=== PATIENT | male | born 1945 | race Hispanic/Latino ===

== ENCOUNTER → 2018-11-30 | Outpatient (CLI) | payer MEDICARE ==
[~2018-11-30] MED LIST: IOPAMIDOL 370 MG/ML 200 ML INFUS..BTL INJ ONE; SODIUM CHLORIDE 0.9% 100 ML 100 ML ONE; SODIUM CHLORIDE 0.9% 500ML 500 ML ONE
[2018-11-30 13:35] LABS: CREATININE, SERUM 1.83 mg/dL (0.72-1.25)
--- NOTE | 2018-11-30 17:42 | Diagnostic Imaging Report ---
CT angiogram of the abdomen pelvis with bilateral lower extremity runoffs. Indication: Peripheral arterial disease TECHNIQUE: Abdomen, pelvis, and bilateral lower extremities were scanned utilizing a multidetector helical scanner from the inferior lungs to the level of bilateral feet after administration of IV contrast. Coronal and sagittal reformations were obtained. CT Angiogram protocol was performed. 3D reconstructions were also performed. IV CONTRAST: 100 mL of Isovue 370 RADIATION DOSE: Total DLP: 944.6 mGy*cm Dose modulation, iterative reconstruction, and/or weight based adjustment of the mA/kV was utilized to reduce the radiation dose to as low as reasonably achievable. COMPLICATIONS: None COMPARISON: None. FINDINGS: VESSELS Moderate to extensive calcified and non-calcified atherosclerotic plaque throughout the abdominal aorta and its major branches. 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 There is an infrarenal abdominal aortic aneurysm. The aneurysm neck measures approximately 0.6 cm. The aneurysm extends to the iliac bifurcation. The aneurysm is bilobed with the proximal lobe measuring up to 3.1 cm and the distal lobe measuring up to 4.6 cm. There is extensive mural thrombus. There is focal severe stenosis of the origin of the celiac artery with poststenotic dilatation. There are atherosclerotic changes with mild stenosis of the origin of the SMA. The JONY origin is occluded but the vessel reconstitutes beyond the origin. There is a right renal artery stent which appears patent. There is focal moderate to severe stenosis in the proximal left renal artery. There are two overlapping stents within the left common iliac artery extending into the left external iliac artery proximally. The stents appear patent. Atherosclerotic calcifications with multifocal mild to moderate stenoses of the left internal iliac artery. Mild multifocal stenoses within the left external iliac artery. Right common iliac artery origin is occluded. There is partial reconstitution of the distal right common iliac artery which gives rise to a diminutive and severely stenosed proximal right internal iliac artery. The distal right internal iliac artery is patent. The right external iliac artery is severely stenosed and likely occluded proximally. The vessel reconstitutes in the mid to distal portion, where it is diminutive. Right lower extremity: There is a robust right inferior epigastric collateral which supplies a normal caliber right common femoral artery. Atherosclerotic changes with multifocal mild to moderate stenoses within the right common femoral artery. Atherosclerotic changes results in mild multifocal stenoses within the right proximal and mid superficial femoral artery and mild to moderate stenosis within the distal superficial femoral artery. Patent right profunda femoral artery. Atherosclerotic changes with mild to moderate stenoses within the right popliteal artery. Mild atherosclerotic changes within the tibioperoneal trunk, anterior and posterior tibial arteries, and peroneal artery with scattered mild stenoses. Patent three-vessel runoff to the right foot. Left lower extremity: Atherosclerotic changes with multifocal mild to moderate stenoses within the left common femoral artery. Atherosclerotic changes results in mild multifocal stenoses within the left proximal superficial artery, and moderate stenoses within the mid and distal portions. Patent left profunda femoral artery with mild atherosclerotic changes. Atherosclerotic changes with mild to moderate stenoses within the left popliteal artery. Mild atherosclerotic changes within the tibioperoneal trunk, anterior and posterior tibial arteries, and peroneal artery with scattered mild stenoses. Patent three-vessel runoff to the left foot. Abdomen and Pelvis: LOWER THORAX: Partially seen pacemaker leads. Extensive coronary atherosclerotic calcifications. There is patchy dependent atelectasis. HEPATOBILIARY: No evidence of focal lesion. No biliary ductal dilation. GALLBLADDER: No radio-opaque stones or sludge. No wall thickening. SPLEEN: No splenomegaly. Calcified splenic granulomas. PANCREAS: No focal masses or ductal dilatation. ADRENALS: No adrenal nodules KIDNEYS/URETERS: Kidneys enhance symmetrically. No evidence of hydronephrosis, solid mass, or stone. GI TRACT: No evidence of wall thickening or distension. Appendix is normal. PELVIC ORGANS/BLADDER: The bladder is partially decompressed and mildly thick-walled. LYMPH NODES: No lymphadenopathy. PERITONEUM / RETROPERITONEUM: No free air or fluid. BONES AND SOFT TISSUES: No acute osseous abnormality. No suspicious lytic or blastic lesions. IMPRESSION Infrarenal bilobed abdominal aortic aneurysm measuring up to 4.6 cm. No evidence of aortic dissection. Patent right renal artery and left common/external iliac artery stents. Focal moderate to severe stenosis in the proximal left renal artery. Severe stenosis at the origin of the celiac artery. Patent SMA. Occluded proximal JONY which reconstitutes. Occluded right common and proximal external iliac artery with reconstitution of the distal external iliac artery and arterial supply to the right lower extremity predominantly via robust right inferior epigastric artery collaterals. Atherosclerotic changes with multifocal mild to moderate stenoses within the bilateral femoral and popliteal arteries. Patent three-vessel runoff to bilateral lower extremities. Signed by: Dr. John Dykes MD on 11/30/2018 5:39 PM
== END ==
LOC: CT 12:16
PROVIDERS: ATTEND Internal Medicine Interventional Cardiology
DX: I73.9 Peripheral vascular disease, unspecified (principal)
CPT/HCPCS: 36415; 75635; 82565; 84520; J7040; Q9967

== ENCOUNTER 2019-06-04 09:15 | Observation (INO) | payer MEDICARE ==
[~2019-06-04] VITALS: Ht 180.3 cm; Wt 90.7 kg
--- OUTSIDE RECORDS SUMMARY | 2019-06-04 09:19 | XMS REPORT | Summary of Care ---
Author Author [facility] Organization [facility] Address Unknown Phone Unavailable Care Team Providers Care Facilities Engineering Manager Name Role Phone Pcp, Patient Does Not Have A PCP Reason for Referral * (Routine) Referred By Contact Referred To Contact Status Reason Specialty Diagnoses / Procedures Zachariah Pichardo MD [address] [place] [address] New Request Diagnoses Carotid stenosis, asymptomatic, left P rocedures CAROTID DUPLEX BILATERAL BY VASCULAR LAB Reason for Visit * Reason Comments Follow-up after lab study * (Routine) Referred By Contact Referred To Contact Status Reason Specialty Diagnoses / Procedures Zachariah Pichardo MD [address] [place] [address] Closed [facility] Diagnoses SURGERY / Stenosis of left Vascular Surgery carotid artery without cerebral infarction P rocedures Discharge Follow-Up: Specialty Service [facility]GERY; 2 Weeks Encounter Details Care Team Description Date Type Department Zachariah Pichardo MD [address] [place] [address] Carotid stenosis, asymptomatic, left (Primary Dx) 05/06/2019 Office Visit [facility] Vascular Surgery- [facility] [address] [phone] Allergies Comments Active Allergy Reactions Severity Noted Date Only intravenous he takes it by mouth and has no reaction. Ondansetron Hcl (Pf) Hives Medium 03/18/2019 documented as of this encounter (statuses as of 05/06/2019) Medications End Date Status Medication Sig Dispensed Refills Start Date Active clopidogrel (PLAVIX) 75 Take 75 mg by 0 mg tablet mouth daily. Active metoprolol succinate 50 Take 50 mg by 0 mg CSpX mouth. Active atorvastatin 40 mg tablet Take 40 mg by 0 mouth at bedtime. Active aspirin 81 mg chewable Take 81 mg by 0 tablet mouth daily. Active escitalopram oxalate 20 Take 20 mg by 0 mg tablet mouth daily. Active pantoprazole (PROTONIX) Take 40 mg by 0 40 mg EC tablet mouth daily. Active ferrous sulfate 325 mg Take 325 mg 0 (65 mg iron) tablet by mouth 3 (three) times daily with meals. Active furosemide (LASIX) 40 mg Take 40 mg by 0 tablet mouth daily. Active RANOLAZINE ORAL Take 500 mg 0 by mouth 2 (two) times daily. Active ondansetron 4 mg Take 4 mg by 0 disintegrating tablet mouth every 8 (eight) hours as needed. Active hydrOXYzine 25 mg tablet Take 25 mg by 0 mouth at bedtime. Active HYDROcodone-acetaminophen Take 1 tablet 28 tablet 0 (NORCO) 5-325 mg by mouth 9 tabletIndications: every 6 (six) Carotid stenosis, hours as asymptomatic, bilateral needed for Pain (scale 4-6). documented as of this encounter (statuses as of 05/06/2019) Active Problems Problem Noted Date At risk for hemodynamic instability 03/25/2019 documented as of this encounter (statuses as of 05/06/2019) Social History Date Tobacco Use Types Packs/Day Years Used Former Smoker Smokeless Tobacco: Never Used Comments: quit 20 years ago Drinks/Week oz/Week Comments Alcohol Use Yes Sex Assigned at Date Recorded Not on file Industry Job Start Date Occupation Not on file Not on file Not on file Travel End Travel History Travel Start No recent travel history available. documented as of this encounter Last Filed Vital Signs Reading Time Taken Comments Vital Sign 150/87 05/06/2019 1:05 PM CDT Blood Pressure 60 05/06/2019 1:02 PM CDT Pulse 35.8 C (96.4 F) 05/06/2019 1:02 PM CDT Temperature - - Respiratory Rate 99% 05/06/2019 1:02 PM CDT Oxygen Saturation - - Inhaled Oxygen Concentration 94.8 kg (209 lb) 05/06/2019 1:02 PM CDT Weight 180.3 cm (5' 11") 05/06/2019 1:02 PM CDT Height 29.15 05/06/2019 1:02 PM CDT Body Mass Index documented in this encounter Progress Notes * Zachariah Pichardo MD - 05/06/2019 1:30 PM CDT Vascular Surgery Faculty Note (Dr. Pichardo) Date of service: 05/06/2019 The patient presents after carotid duplex. Left side endarterectomy site shows no significant stenosis. There is moderate stenosis on the right 155/17. No pro blems since I saw him last time Exam: AOx3, vitals stable, left neck incision well-healing, corner of the left m outh is recovering A/P: Carotid endarterectomy for severe asymptomatic stenosis -Healing well. 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 Zachariah Pichardo MD, VERN, MHA, RPVI, FACS screen machine operator Division of Vascular Surgery and Endovascular Therapy 05/06/2019 1:20 PM | Office: [phone] | | Pager: [phone] documented in this encounter Plan of Treatment Health Maintenance Due Date Last Done Comments HEPATITIS C (HCV) SCREEN 1945 DTaP,Tdap,and Td Vaccines 1964 (1 - Tdap) COLONOSCOPY 1995 Zoster Recombinant 1995 Vaccine (SHINGRIX) (1 of 2) LUNG CANCER SCREEN: 2000 Recommended for age 55-80 with 30 + pack year history Medicare Wellness Visit 2010 PNEUMOCOCCAL VACCINES 65+ 2010 (1 of 2 - PCV13) INFLUENZA VACCINE 05/26/2019 documented as of this encounter Implants Device Identifier Shelf Expiration Date Model / Serial / Lot Implanted Type Area Manufactur er 11/01/2023 [id number] / NA / [id number] Vascu-Guard Bovine Pericardium Left: Neck Synovis Patch 0.8x8cm Sethi Ref#[id number] Implanted: Qty: 1 on 03/25/2019 by Zachariah Pichardo MD at [facility] ([facility]) documented as of this encounter Results Not on filedocumented in this encounter Visit Diagnoses Diagnosis Carotid stenosis, asymptomatic, left - Primary documented in this encounter Insurance Type Payer Benefit Subscriber ID Effective Phone Address Plan / Dates Group Medicare MEDICARE MEDICARE xxxxxxxxxxx 2010-P [phone] resent [id number] [place] [address] Medicare Supplement AARP-[facility] [id number] 2018-P [address] resent [id number] MEDICARE [place] SUPPLE[place] [id number] documented as of this encounter
--- OUTSIDE RECORDS SUMMARY | 2019-06-04 09:19 | XMS REPORT | Summary of Care ---
Author Author Stacy Flores R.N. Organization Unknown Address [facility] Phone Unavailable Care Team Providers Care Electrode Cleaning Machine Operator Name Role Phone PER MURRELL M.D. Unavailable Unavailable Stacy Flores R.N. Unavailable Unavailable ELVIE KOTHARI, CURTIS YOUNG Unavailable Unavailable Per Murrell MD Unavailable Unavailable Unavailable Unavailable Functional Status Name Dates Details Functional status health issues are not documented Status: Name Dates Details Cognitive status health issues are not documented Status: Problems Name Dates Details CAD (coronary artery disease) (414.00, I25.10) Status: Active Depression with anxiety (300.4, F41.8) Status: Active HTN (hypertension) (401.9, I10) Status: Active Unstable angina pectoris due to coronary arteriosclerosis (411.1, I25.110) Status: Active Coronary artery disease involving coronary bypass graft with angina pectoris with documented spasm (414.05, I25.701) Status: Active Medications Name Dates Details Clopidogrel Bisulfate 75 MG Oral Tablet TAKE 1 TABLET DAILY. Quantity: 30 Active Lexapro 20 MG Oral Tablet TAKE 1 TABLET EVERY OTHER DAY * Refills: 0 Active Bystolic 2.5 MG Oral Tablet TAKE 1 TABLET DAILY. * Refills: 0 Active Aspirin EC 81 MG Oral Tablet Delayed Release TAKE 1 TABLET BY MOUTH EVERY DAY * Refills: 0 Active Isosorbide Mononitrate ER 30 MG Oral Tablet Extended Release 24 Hour TAKE 1 TABLET DAILY. * Quantity: 30 Refills: 6 PER MURRELL M.D. * Start : 26-Sep-2018 Active Allergies and Adverse Reactions Name Dates Details Phenergan (Allergy) Reaction: Hallucinations Status: Active Past Medical History Name Dates Details History of Heart disease (429.9, I51.9) Status: Resolved Procedures Procedure Dates Details History of CABG Completed Immunization Name Dates Details Immunizations not documented Social History Name Dates Details - Status: Name Dates Details Former smoker Vital Signs Date Test Result Details [id number] BP Systolic 129 mm[Hg] Status: Comments: Location: RUE; BP Diastolic 50 mm[Hg] Status: Comments: Location: [facility]; Weight 195 lb Status: Heart Rate 52 /min Status: Respiration Rate 16 /min Status: Results Date Description Value Details Results not documented Plan of Care Name Dates Details Planned Observations Planned Goals not documented Planned Encounters Appointment; PER MURRELL M.D. On: 26-Nov-2018 11:00 Interventions Provided Discussion/Summary* Guideline Used: * Other: Transfer issue * Cardiology * Dr. Murrell * Spouse called and she is worried about transfer. Patient is to have Heart procedure on and is wanting patient transferred now. Transfer Center called and they are working on it. Ines in Transfer said she would call Mrs. Bergeron. * Recommended Disposition: Transfer issue * Action Taken: * Patient informed/educated about nurse line * Reason for Disposition: patient is to be transferred from [facility] to [facility]. * Intended Caller Action: * Other: Transfer issue * Additional Information: * Transfer Center called Instructions Name Dates Details Instructions not documented Encounters Appointment; SHAJI BARRIENTOS Encounter Diagnosis: Problem not documented On: 15-Nov-2017 15:00 Appointment; SHAJI BARRIENTOS Encounter Diagnosis: Problem not documented On: 01-Jan-2018 8:00 Appointment; PER MURRELL M.D. Encounter Diagnosis: Problem not documented On: 05-Sep-2018 14:20
--- OUTSIDE RECORDS SUMMARY | 2019-06-04 09:19 | XMS REPORT | Summary of Care ---
Author Author [facility] Address Unknown Phone Unavailable Care Team Providers Care Railroad Operator Name Role Phone Pcp, Patient Does Not Have A PCP Reason for Referral * (Routine) Referred By Contact Referred To Contact Status Reason Specialty Diagnoses / Procedures Zachariah Pichardo MD [address] [place] [address] Closed Vascular Diagnoses Sonography Carotid stenosis, asymptomatic, left P rocedures CAROTID DUPLEX BILATERAL BY VASCULAR LAB * (Routine) Referred By Contact Referred To Contact Status Reason Specialty Diagnoses / Procedures Zachariah Pichardo MD [address] [place] [address] Closed Vascular Diagnoses Sonography Carotid stenosis, asymptomatic, left P rocedures CAROTID DUPLEX BILATERAL BY VASCULAR LAB Reason for Visit * Reason Comments ULTRASOUND * (Routine) Referred By Contact Referred To Contact Status Reason Specialty Diagnoses / Procedures Zachariah Pichardo MD [address] [place] [address] Closed Vascular Diagnoses Sonography Carotid stenosis, asymptomatic, left P rocedures CAROTID DUPLEX BILATERAL BY VASCULAR LAB Encounter Details Care Team Description Date Type Department Bandar Bergeron Jr., MD [address] [facility] [id number] [place], [place] [id number] 1, Vls Vas Rm 05/06/2019 [facility] Vascular Encounter Lab-[address] [place] [address] Allergies Comments Active Allergy Reactions Severity Noted Date Only intravenous he takes it by mouth and has no reaction. Ondansetron Hcl (Pf) Hives Medium 03/18/2019 documented as of this encounter (statuses as of 05/07/2019) Medications End Date Status Medication Sig Dispensed [...] as of this encounter (statuses as of 05/07/2019) Active Problems Problem Noted Date At risk for hemodynamic instability 03/25/2019 documented as of this encounter (statuses as of 05/07/2019) Social History Date Tobacco Use Types Packs/Day [...] of this encounter Last Filed Vital Signs Not on filedocumented in this encounter Plan of Treatment Care Team Description Date Type Specialty 1, Vls Vas Rm 05/04/2020 Appointment Vascular Sonography Zcahariah Pichardo MD [address] [place] [phone] 05/04/2020 Office Visit Vascular Surgery Health Maintenance Due Date Last Done Comments [...] Manufactur er 11/01/2023 [id number] / NA / [id number] Vascu-Guard Bovine Pericardium Left: Neck Synovis Patch 0.8x8cm Sethi Ref#[id number] Implanted: Qty: 1 on 03/25/2019 by Zachariah Pichardo MD at [facility] ([facility]) documented as of this encounter Procedures Comments Procedure Name Priority Date/Time Associated Diagnosis CAROTID DUPLEX BILATERAL Routine 05/06/2019 Carotid stenosis, BY VASCULAR LAB 11:42 AM CDT asymptomatic, left documented in this encounter Results Not on filedocumented in this encounter Visit Diagnoses Diagnosis Carotid stenosis, asymptomatic, left documented in this encounter Insurance Type Payer Benefit Subscriber ID Effective Phone Address Plan / Dates Group Medicare MEDICARE MEDICARE xxxxxxxxxxx 2010-P [phone] [address] resent [id number] [place] [id number] Medicare Supplement A[facility] [id number] 2018-P [address] [place] [id number] MEDICARE [place] SUPP[place] [id number] documented as of this encounter
--- OUTSIDE RECORDS SUMMARY | 2019-06-04 09:19 | XMS REPORT | Clinical Summary ---
Author Author [facility] Address Unknown Phone Unavailable Care Team Providers Care Professor Of German Name Role Phone Andriy Martin MD PCP Allergies Comments Active Allergy Reactions Severity Noted Date IV only Promethazine High 07/17/2016 IV only Ondansetron Hcl High 07/17/2016 Medications End Date Status Medication Sig Dispensed Refills Start Date Active escitalopram (LEXAPRO) 20 Take 20 mg by 0 MG tablet mouth daily with dinner. Active OXcarbazepine (TRILEPTAL) Take 300 mg 0 600 MG tablet by mouth daily. Active ezetimibe (ZETIA) 10 mg Take 10 mg by 0 tablet mouth daily. Active atorvastatin (LIPITOR) 40 Take 40 mg by 0 MG tablet mouth daily. Active ranolazine (RANEXA) 500 Take 500 mg 0 MG 12 hr ER tablet by mouth 2 (two) times a day. Active traMADol (ULTRAM) 50 mg Take 50 mg by 0 tablet mouth every 6 (six) hours as needed for moderate pain. Active zolpidem (AMBIEN) 10 mg Take 10 mg by 0 tablet mouth nightly as needed for sleep. Active nitroglycerin (NITROSTAT) Place 0.4 mg 0 0.4 MG SL tablet under the tongue every 5 (five) minutes as needed for chest pain. Active ALPRAZolam (XANAX) 1 MG Take 1 mg by 0 tablet mouth. Active modafinil (PROVIGIL) 100 Take 100 mg 0 MG tablet by mouth daily. 1/2 tab Active metFORMIN (GLUCOPHAGE) Take 500 mg 0 500 mg tablet by mouth daily with breakfast. Active aspirin (ECOTRIN) 81 MG Take 1 tablet 30 tablet 0 enteric coated tablet (81 mg total) 8 by mouth daily for 30 days. Additional information Patient taking differently: 81 mg oral daily with dinner, Reported on 05/27/2018 8:07 PM Active clopidogrel (PLAVIX) 75 Take 75 mg by 0 mg tablet mouth daily. Active telmisartan (MICARDIS) 40 Take 40 mg by 0 MG tablet mouth 2 (two) times a day. Active triamterene-hydrochloroth Take 1 tablet 0 iazid (MAXZIDE) 75-50 mg by mouth 3 per tablet (three) times a week. M-W-F 06/30/2018 carvedilol (COREG) 6.25 Take 1 tablet 60 tablet 0 05/31/201 MG tablet (6.25 mg 8 total) by mouth 2 (two) times a day for 30 days. 07/01/2018 pioglitazone (ACTOS) 15 Take 1 tablet 30 tablet 0 06/01/201 MG tablet (15 mg total) 8 by mouth daily with breakfast for 30 days. Active Problems Problem Noted Date Chest pain 05/26/2018 Unstable angina 07/17/2016 Essential hypertension 07/17/2016 Hyperlipemia 07/17/2016 Type 2 diabetes mellitus with renal complication 07/17/2016 Anemia of chronic disease 07/17/2016 Coronary artery disease involving [place] coronary artery of [place] heart 07/17/2016 Depression 07/17/2016 PAD (peripheral artery disease) 07/17/2016 Family History Medical History Relation Name Comments Early Father Diabetes Mother Relation Name Status Comments Father Mother Social History Date Tobacco Use Types Packs/Day Years Used Former Smoker Smokeless Tobacco: Never Used Drinks/Week oz/Week Comments Alcohol Use Yes Sex Assigned at Date Recorded Not on file Industry Job Start Date Occupation Not on file Not on file Not on file Travel End Travel History Travel Start No recent travel history available. Last Filed Vital Signs Not on file Plan of Treatment Health Maintenance Due Date Last Done Comments DIABETIC RETINAL EYE EXAM 1945 DIABETIC FOOT EXAM 1955 URINE MICROALBUMIN 1955 COLONOSCOPY SCREENING 1995 SHINGLES VACCINES (#1) 1995 65+ PNEUMOCOCCAL VACCINE 2010 07/02/2012 (2 of 2 - PPSV23) INFLUENZA VACCINE 04/25/2019 Implants Device Identifier Shelf Expiration Date Model / Serial / Lot Implanted Type Area Manufactur er 02/14/2018 [id number] / / [id number] Stent Cor Resolute Integrity Coronary N/A: N/A [employer] Ztrlims-Eltng Otw 3x30mm - Stents [place] - [id number] VASCULAR Implanted: 07/18/2016 at [facility] (Quantity not on file) Results Not on fileafter 06/03/2018 Insurance Type Payer Benefit Subscriber ID Effective Phone Address Plan / Dates Group Medicare MEDICARE MEDICARE xxxxxxxxxx 2010-P [place], PART A AND resent [place] B Commercial AARP AARP xxxxxxxxx-xx 2015-P SUPPLEMENT resent (Home) [place] [address] Advance Directives For more information, please contact: [phone] 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
--- OUTSIDE RECORDS SUMMARY | 2019-06-04 09:19 | XMS REPORT | Summary of Care ---
Author Author [facility] - [facility] Organization [facility] - [facility] Address Unknown Phone Unavailable Care Team Providers Care Access Services Assistant Name Role Phone Pcp, Patient Does Not Have A PCP Reason for Referral * (Routine) Referred By Contact Referred To Contact Status Reason Specialty Diagnoses / Procedures Zachariah Pichardo MD [address] [place] [address] New Request Diagnoses Carotid stenosis, asymptomatic, left P rocedures CAROTID DUPLEX BILATERAL BY VASCULAR LAB Reason for Visit * Reason Comments Follow-up after lab study * (Routine) Referred By Contact Referred To Contact Status Reason Specialty Diagnoses / Procedures Zachariah Pichardo MD [address] [place] [address] Closed [facility] Diagnoses SURGERY / Stenosis of left Vascular Surgery carotid artery without cerebral infarction P rocedures Discharge Follow-Up: Specialty Service [facility] SURGERY; 2 Weeks Encounter Details Care Team Description Date Type Department Zachariah Pichardo MD [address] [place] [address] Carotid stenosis, asymptomatic, left (Primary Dx) 05/06/2019 Office Visit [facility] Health Vascular Surgery- [facility] [address] [id number] Allergies Comments Active Allergy Reactions Severity Noted [...] Zachariah Pichardo MD, VERN, MHA, RPVI, FACS court deputy Division of Vascular Surgery and Endovascular Therapy 05/06/2019 1:20 PM | Office: [phone] | | Pager: documented in this encounter Plan of Treatment [...] Manufactur er 11/01/2023 [id number] / [id number] / [id number] Vascu-Guard Bovine Pericardium Left: Neck Synovis Patch 0.8x8cm Sethi Ref#[id number] Implanted: Qty: 1 on 03/25/2019 by Zachariah Pichardo MD at [facility] ([facility]) documented as of this encounter Results Not on filedocumented in this encounter Visit Diagnoses Diagnosis Carotid stenosis, asymptomatic, left - Primary documented in this encounter Insurance Type Payer Benefit Subscriber ID Effective Phone Address Plan / Dates Group Medicare MEDICARE MEDICARE xxxxxxxxxxx 2010-P [phone] [address] resent [id number] [place] [id number] Medicare Supplement AARP[facility] [id number] 2018-P [address] resent [id number] MEDICARE [place] SUPPLEMENT [place] JAMES [id number] documented as of this encounter
--- OUTSIDE RECORDS SUMMARY | 2019-06-04 09:19 | XMS REPORT ---
Author Author [facility] Address Unknown Phone Unavailable Care Team Providers Care Central Supply Technician Name Role Phone BENNY FIELDS Unavailable Unavailable Problems This patient has no known problems. Allergies, Adverse Reactions, Alerts This patient has no known allergies or adverse reactions. Medications This patient has no known medications. Results Test Description Test Time Test Comments Text Results Atomic Results Result Comments CTA ABD/PEL/RUN OFF 2018-11-30 16:45:00 [place] [address] Patient Name: BARTOLOME CARRILLO MR #: [id number] : 1945 Age/Sex: 73/M Req #: [id number] Adm Physician: Ordered by: BENNY FIELDS MD Report #: [id number] Location: CT Room/Bed: Procedure: [id number] CT/CTA ABD/PEL/RUN OFF Exam Date: 11/30/18 Exam Time: 1630 REPORT STATUS: Signed CT angiogram of the abdomen pelvis with bilateral lower extremity runoffs. Indication: Peripheral arterial disease TECHNIQUE: Abdomen, pelvis, and bilateral lower extremities were scanned utilizing a multidetector helical scanner from the inferior lungs to the level of bilateral feet after administration of IV contrast. Coronal and sagittal reformations were obtained. CT Angiogram protocol was performed. 3D reconstructions were also performed. IV CONTRAST: 100 mL of Isovue 370 RADIATION DOSE: Total DLP: 944.6 mGy*cm Dose modulation, iterative reconstruction, and/or weight based adjustment of the mA/kV was utilized to reduce the radiation dose to as low as reasonably achievable. COMPLICATIONS: None COMPARISON: None. FINDINGS: VESSELS Moderate to extensive calcified and non-calcified atherosclerotic plaque throughout the abdominal aorta and its major branches. 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 There is an infrarenal abdominal aortic aneurysm. The aneurysm neck measures approximately 0.6 cm. The aneurysm extends to the iliac bifurcation. The aneurysm is bilobed with the proximal lobe measuring up to 3.1 cm and the distal lobe measuring up to 4.6 cm. There is extensive mural thrombus. There is focal severe stenosis of the origin of the celiac artery with poststenotic dilatation. There are atherosclerotic changes with mild stenosis of the origin of the SMA. The JONY origin is occluded but the vessel reconstitutes beyond the origin. There is a right renal artery stent which appears patent. There is focal moderate to severe stenosis in the proximal left renal artery. There are two overlapping stents within the left common iliac artery extending into the left external iliac artery proximally. The stents appear patent. Atherosclerotic calcifications with multifocal mild to moderate stenoses of the left internal iliac artery. Mild m ultifocal stenoses within the left external iliac artery. Right common iliac artery origin is occluded. There is partial reconstitution of the distal right common iliac artery which gives rise to a diminutive and severely stenosed proximal right internal iliac artery. The distal right internal iliac artery is patent. The right external iliac artery is severely stenosed and likely occluded proximally. The vessel reconstitutes in the mid to distal portion, where it is diminutive. Right lower extremity: There is a robust right inferior epigastric collateral which supplies a normal caliber right common femoral artery. Atherosclerotic changes with multifocal mild to moderate stenoses within the right common femoral artery. Atherosclerotic changes results in mild multifocal stenoses within the right proximal and mid superficial femoral artery and mild to moderate stenosis within the distal superficial femoral artery. Patent right profunda femoral artery. Atheroscle rotic changes with mild to moderate stenoses within the right popliteal artery. Mild atherosclerotic changes within the tibioperoneal trunk, anterior and posterior tibial arteries, and peroneal artery with scattered mild stenoses. Patent three-vessel runoff to the right foot. Left lower extremity: Atherosclerotic changes with multifocal mild to moderate stenoses within the left common femoral artery. Atherosclerotic changes results in mild multifocal stenoses within the left proximal superficial artery, and moderate stenoses within the mid and distal portions. Patent left profunda femoral artery with mild atherosclerotic changes. Atherosclerotic changes with mild to moderate stenoses within the left popliteal artery. Mild atherosclerotic changes within the tibioperoneal trunk, anterior and posterior tibial arteries, and peroneal artery with scattered mild stenoses. Patent three- vessel runoff to the left foot. Abdomen and Pelvis: LOWER THORAX: Partially seen pacemaker leads. Extensive coronary atherosclerotic calcifications. There is patchy dependent atelectasis. HEPATOBILIARY: No evidence of focal lesion. No biliary ductal dilation. GALLBLADDER: No radio-opaque stones or sludge. No wall thickening. SPLEEN: No splenomegaly. Calcified splenic granulomas. PANCREAS: No focal masses or ductal dilatation. ADRENALS: No adrenal nodules KIDNEYS/URETERS: Kidneys enhance symmetrically. No evidence of hydronephrosis, solid mass, or stone. GI TRACT: No evidence of wall thickening or distension. Appendix is normal. PELVIC ORGANS/BLADDER: The bladder is partially decompressed and mildly thick-walled. LYMPH NODES: No lymphadenopathy. PERITONEUM / RETROPERITONEUM: No free air or fluid. BONES AND SOFT TISSUES: No acute osseous abnormality. No suspicious lytic or blastic lesions. IMPRESSION Infrarenal bilobed abdominal aortic aneurysm measuring up to 4.6 cm. No evidence of aortic dissection. Patent right renal artery and left common/external iliac artery stents. Focal moderate to severe stenosis in the proximal left renal artery. Severe stenosis at the origin of the celiac artery. Patent SMA. Occluded proximal JONY which reconstitutes. Occluded right common and proximal external iliac artery with reconstitution of the distal external iliac artery and arterial supply to the right lower extremity predominantly via robust right inferior epigastric artery collaterals. Atherosclerotic changes with multifocal mild to moderate stenoses within the bilateral femoral and popliteal arteries. Patent three-vessel runoff to bilateral lower extremities. Signed by: Dr. William Anderson MD on 11/30/2018 5:39 PM Dictated By: WILLIAM ANDERSON MD [id number] Transcribed By: CROW on 11/30/184 COPY TO: BENNY FIELDS MD
[2019-06-04] MEDS ORDERED: SODIUM CHLORIDE 0.9% 1000ML 1,000 ML IV STA (09:27)
[2019-06-04] MEDS ORDERED: PANTOPRAZOLE 40 MG 10ML VIAL IV STA (09:47)
[2019-06-04 09:57] LABS: BASOPHILS # (AUTO) 0.1 (0.0-0.1); BASOPHILS % 0.8 % (0.0-1.0); EOSINOPHILS # (AUTO) 0.2 (0.0-0.4); EOSINOPHILS % 2.4 % (0.0-6.0); HEMATOCRIT 39.5 % (38.2-49.6); HEMOGLOBIN 12.4 g/dL (14.0-18.0); LYMPHOCYTES # (AUTO) 1.3 (1.0-3.2); LYMPHOCYTES % 20.7 % (18.0-39.1); MEAN CORPUSCULAR HEMOGLOBIN 30.2 pg (28-32); MEAN CORPUSCULAR HGB CONC 31.4 g/dL (31-35); MEAN CORPUSCULAR VOLUME 96.1 fL (81-99); MONOCYTES # (AUTO) 0.7 (0.2-0.8); MONOCYTES % 10.8 % (4.4-11.3); NEUTROPHILS % 64.7 % (38.7-80.0); PLATELET COUNT 240 x10e3/uL (140-360); RED BLOOD COUNT 4.11 x10e6/uL (4.3-5.7); RED CELL DISTRIBUTION WIDTH 13.8 % (11.7-14.4)
[2019-06-04] MEDS: FAMOTIDINE 20 MG/2 ML VIAL IV SCH ×2 (10:19→20:47)
[2019-06-04 10:27] LABS: ALBUMIN 3.6 g/dL (3.5-5.0); ALBUMIN/GLOBULIN RATIO 0.9 (0.8-2.0); ANION GAP 18.5 mmol/L (8-16); CALCIUM 9.4 mg/dL (8.4-10.2); CREATININE, SERUM 3.85 mg/dL (0.72-1.25); MAGNESIUM 2.5 MG/DL (1.3-2.1); POTASSIUM 5.5 mmol/L (3.5-5.1)
[2019-06-04 10:34] LABS: INR 1.03; PARTIAL THROMBOPLASTIN TIME 30.9 seconds (23.8-35.5)
[2019-06-04 10:35] LABS: CREATINE KINASE MB 3.6 ng/mL (0-5.0)
--- NOTE | 2019-06-04 10:40 | NUR ---
DR FLORES IN ROOM WITH PT
--- NOTE | 2019-06-04 11:04 | Diagnostic Imaging Report ---
Chest, 1 view, 06/04/2019. History: Dizziness and confusion. Comparison: None available. Findings: The cardiomediastinal silhouette and pulmonary vasculature are within normal limits for a portable exam. There is no focal consolidation or pleural effusion. Linear opacities are present at the lung bases. Left subclavian dual-lead pacer and median sternotomy wires are present. There are no acute osseous or soft tissue abnormalities. Impression: No acute cardiopulmonary abnormality. Signed by: Carlos Hernandez on 06/04/2019 11:01 AM
[2019-06-04] MEDS ORDERED: SOD POLYSTYRENE SULFONATE SUSP 15 GM/60 ML BTL PO ONE (12:00)
--- OUTSIDE RECORDS SUMMARY | 2019-06-04 12:18 | XMS REPORT | Clinical Summary ---
Author Author [facility] Address Unknown Phone Unavailable Care Team Providers Care Sort Operations Supervisor Name Role Phone Andriy Martin MD PCP [...] chronic disease 07/17/2016 Coronary artery disease involving [place] coronary artery of [place] heart 07/17/2016 Depression 07/17/2016 PAD (peripheral artery [...] Lot Implanted Type Area Manufactur er 02/14/2018 [id number] / / [id number] Stent Cor Resolute Integrity Coronary N/A: N/A [employer] Ztrlims-Eltng Otw 3x30mm - Stents [place] - [id number] VASCULAR Implanted: 07/18/2016 at [facility] (Quantity not on file) Results Not on fileafter 06/03/2018 Insurance Type Payer Benefit Subscriber ID Effective Phone Address Plan / Dates Group Medicare MEDICARE MEDICARE xxxxxxxxxx 2010-P [place], PART A AND resent [place] B Commercial AARP AARP xxxxxxxxx-xx 2015-P SUPPLEMENT resent (Home) [place] [address] Advance Directives For more information, please contact: [phone] Patient Shower Room Attendant Explanation Type Date Recorded Advance Directives, Living Will and Medical Power of Hedis Review Nurse
--- NOTE | 2019-06-04 14:32 | Diagnostic Imaging Report ---
Renal ultrasound, 06/04/2019. History: Renal failure. Discussion: Transverse and longitudinal images of the kidneys were obtained demonstrating normal renal sizes and echogenicities. There is no evidence of hydronephrosis, mass, or renal calculus. The right kidney measures 10.6 cm and the left kidney measures 11.3 cm in length. Renal cortex measures 1.8 and 1.9 cm respectively. The urinary bladder is distended. Bladder volume measures 888 mL. Ureteral jets were not visualized. Prostate is not enlarged. There is no evidence of free fluid. Perinephric fluid is noted bilaterally. IMPRESSION: No evidence of nephrolithiasis or hydronephrosis, but urinary bladder distention and bilateral perinephric fluid are present. Signed by: Carlos Hernandez on 06/04/2019 2:29 PM
[2019-06-04] MEDS ORDERED: SODIUM CHLORIDE 0.9% 500ML 500 ML ONE (14:49)
--- NOTE | 2019-06-04 17:09 | NUR ---
Received patient via stretcher from ER. Accompanied by . [id number] to person, place, time, situation. Respirations even and unlabored. Tele #[id number] paced 60. Denies chest pain. Oriented to room. Instructed to use call light for assistance. Voiced understanding. Will continue to monitor.
[2019-06-04 17:30] VITALS: BP 144/65
[2019-06-04] MEDS ORDERED: FUROSEMIDE40 MG PO (17:30)
[2019-06-04] MEDS ORDERED: CLOPIDOGREL75 MG PO (17:30)
[2019-06-04] MEDS ORDERED: ZOFRAN4 MG PO (17:30)
[2019-06-04] MEDS ORDERED: LEXAPRO10 MG PO (17:30)
[2019-06-04] MEDS ORDERED: ATORVASTATIN CA20 MG PO (17:30)
[2019-06-04] MEDS ORDERED: METOPROLOL SUCC50 MG PO (17:30)
[2019-06-04] MEDS ORDERED: PANTOPRAZOLE SO40 MG PO (17:30)
[2019-06-04] MEDS ORDERED: FERROUS SULFAT325 MG PO (17:30)
[2019-06-04] MEDS ORDERED: RANEXA500 MG PO (17:30)
[2019-06-04] MEDS ORDERED: BENICAR40 MG PO (17:30)
[2019-06-04] MEDS ORDERED: ASPIR 8181 MG PO (17:30)
[2019-06-04 17:39] VITALS: BP 144/65
[2019-06-04 18:24] LABS: CREATINE KINASE MB 3.5 ng/mL (0-5.0)
--- NOTE | 2019-06-04 19:00 | NUR ---
Report given to oncoming nurse of patient's status. Resting in bed, side rails upx2, call light within reach. No s/s of acute distress noted.
[2019-06-04] MEDS ORDERED: ONDANSETRON HCL 4 MG ORAL DISINTEGRATING TAB PO PRN (19:30)
[2019-06-04 19:33] LABS: BILIRUBIN,URINE NEGATIVE (NEGATIVE); CLARITY,URINE CLEAR (CLEAR); COLOR,URINE YELLOW (YELLOW); KETONES,URINE NEGATIVE (NEGATIVE); LEUKOCYTE ESTERASE ,URINE NEGATIVE (NEGATIVE); NITRITE,URINE NEGATIVE (NEGATIVE); PROTEIN,URINE DIPSTICK TRACE (NEGATIVE); URINE UROBILINOGEN 0.2 mg/dL (0.2 - 1)
[2019-06-04 19:49] LABS: EPITHELIAL CELLS,URINE RARE /LPF
[2019-06-04 20:00] VITALS: BP 115/56
--- NOTE | 2019-06-04 20:00 | NUR ---
pt received. pt assessed. no ss of distress noted. tele in place per orders. no co pain at time. will cont to follow poc. call johnson within reach.
[2019-06-04 20:13] LABS: CREATININE,URINE RANDOM 56.89 mg/dL (63-166); TOTAL PROTEIN, URINE 23.6 mg/dL (1-14)
[2019-06-04 20:22] VITALS: BP 115/56
[2019-06-04] MEDS: SODIUM BICARBONATE 650 MG TAB PO SCH (20:47)
--- NOTE | 2019-06-04 22:38 | NUR ---
Cardiology Consult Dictation# [id number]
--- NOTE | 2019-06-04 23:53 | Consultation ---
DATE OF CONSULTATION: 06/04/2019 HISTORY OF PRESENT ILLNESS: A 74-year-old gentleman with a significant history of atherosclerotic cardiovascular disease. He has had prior [place] and coronary artery bypass surgery. Repeat catheterization and restenting of his coronaries, history of left carotid endarterectomy, history of peripheral vascular disease and stenting of his lower extremities. He has also had renal angioplasty and has a stent in one of the kidneys. He does not remember which one about approximately three years ago, came in because he was very dizzy, his blood pressure dropped and recently it was elevated. He was started on olmesartan and medoxomil. He also takes Plavix, atorvastatin, aspirin, and Ranexa 500 mg tablet, metoprolol 50 mg q.12. Currently, awake, alert, and oriented x3. No apparent distress. Denies shortness of breath, nausea, vomiting, headache, fever, or chills. ALLERGIES: NO APPARENT DRUG ALLERGIES. CURRENT MEDICATIONS: The patient received normal saline wide open 1 L bolus. Besides that, he received one time dose of Kayexalate and is on pantoprazole injections. PHYSICAL EXAMINATION: GENERAL: On exam, he is awake, alert, and oriented x3, lying supine in bed, in no apparent distress. VITAL SIGNS: Blood pressure 116/74, pulse rate 80, afebrile, oxygen saturation 100% on room air, and respiratory rate 17. HEAD AND NECK EXAM: Mild conjunctival hyperemia noted on left conjunctiva, otherwise mild pallor. Oral mucosa moist. NECK: Veins flat. No JVD. LUNGS: Clear to auscultation. No rales or rhonchi. HEART: S1, S2 audible. ABDOMEN: Otherwise soft, nontender. No apparent visceromegaly. LOWER EXTREMITY: No edema. LABORATORY TEST: Shows a white count 6.2 and hemoglobin 12.4. Initial potassium 5.5, bicarbonate 18, BUN 68, and creatinine 3.85. BNP 137, total protein 7.6, and globulin 4.0. Calcium 9.4 and magnesium 2.5. IMPRESSION AND PLAN: High anion gap metabolic acidosis with acute kidney injury, hyperkalemia. Agree with Kayexalate. Etiology of kidney failure appears multifactorial. I believe he has an acute kidney injury component, perhaps due to hypotension with episode. I suspect chronic kidney disease given his history of renal artery angioplasty and stent placement. It may be dealing with ischemic nephropathy, atherosclerotic renovascular disease. PLAN: On starting sodium bicarbonate tablets, I will order workup including kidney ultrasound, urinalysis, urine spot protein creatinine ratio. Further workup to follow. MD LEOBARDO Chavez/JOSEFINAL /[id number]
[2019-06-05] VITALS (7 sets, daily range): BP systolic 102–140; BP diastolic 58–69
[2019-06-05 01:57] LABS: CREATINE KINASE MB 3.9 ng/mL (0-5.0)
--- NOTE | 2019-06-05 05:03 | NUR ---
pt resting. no ss of distress noted. call johnson within reach.
--- NOTE | 2019-06-05 05:38 | Consultation ---
DATE OF CONSULTATION: 06/04/2019 Cardiology Consultation REQUESTING PHYSICIAN: Gavin Duran MD REASON FOR CONSULTATION: Coronary artery disease. HISTORY OF PRESENT ILLNESS: This is a 74-year-old man with history of coronary artery disease, status post CABG with patent CEVALLOS to LAD, chronic systolic heart failure, symptomatic bradycardia, status post SPECIALIZED DEVELOPER pacemaker, carotid artery disease, status post left CEA, peripheral artery disease with occlusion of bilateral SFA, abdominal aortic aneurysm, who presented to Cardiology Clinic with complaints of weakness, chills, and diaphoresis. He was found to be hypotensive to 73/51 and sent to the [facility] ER for further evaluation. The patient denies any chest pain, shortness of breath, or palpitations. Denies edema, orthopnea, or PND. On evaluation in the ER, he was found to have acute renal failure with creatinine of 3.85. The patient was subsequently admitted for further evaluation. REVIEW OF SYSTEMS: Negative except as per HPI. PAST MEDICAL HISTORY: 1. Coronary artery disease, status post CABG with patent CEVALLOS to LAD, but occlusion of all other vein grafts. 2. Chronic systolic heart failure. 3. Carotid artery disease, status post left CEA. 4. Symptomatic bradycardia, status post SPECIALIZED DEVELOPER pacemaker. 5. Hypertension. 6. Hyperlipidemia. 7. Chronic kidney disease. PAST SURGICAL HISTORY: 1. Left CEA. 2. CABG. ALLERGIES: NO KNOWN DRUG ALLERGIES. MEDICATIONS: Please see medication list. SOCIAL HISTORY: Denies illicit drugs. Remote history of tobacco use. Drinks alcohol occasionally. FAMILY HISTORY: Pertinent for father with heart disease, although details were not known. PHYSICAL EXAMINATION: VITAL SIGNS: Temperature 96.2 degrees, pulse 60, respiratory rate 18, blood pressure 109/77, and oxygen saturation 97% on room air. GENERAL: Awake, alert, in no acute distress. Well developed, well nourished. HEENT: Normocephalic and atraumatic. Pupils equal. No scleral icterus. NECK: Supple. No thyromegaly or cervical lymphadenopathy. No carotid bruits. LUNGS: Clear to auscultation bilaterally. No wheezes or crackles. CARDIOVASCULAR: Normal rate. Regular rhythm. No murmur. Normal S1, S2. ABDOMEN: Soft and nontender. EXTREMITIES: No edema. NEUROLOGIC: Nonfocal exam. LABORATORY DATA: Sodium 136, potassium 5.5, chloride 105, CO2 of 18, BUN 68, creatinine 3.85, BNP 137. Troponin 0.046. WBC 6.23, hemoglobin 12.4, hematocrit 39.5, and platelets 240. Chest x-ray, no acute cardiopulmonary abnormality. EKG, electronic ventricular pacemaker. IMPRESSION: 1. Hypotension. 2. Acute renal failure. 3. Coronary artery disease, status post coronary artery bypass grafting with patent CEVALLOS to LAD, but occluded vein graft and recent RCA PCI. 4. Carotid artery disease, status post left CEA. 5. Chronic systolic heart failure with preserved left ventricular ejection fraction on last echocardiogram. 6. Hypertension. 7. Hyperlipidemia. 8. Acute on chronic kidney disease. RECOMMENDATIONS: The patient's blood pressure has improved. Watch volume status closely. Continue home cardiac medications specifically aspirin and Plavix as well as atorvastatin. Continue Ranolazine and metoprolol now that blood pressure has stabilized. Monitor the patient closely on telemetry. Cultures are pending. Further evaluation, acute renal failure per Nephrology. Check orthostatic vitals. The patient has had recent cardiovascular evaluation. No further cardiac evaluation is indicated at this time. Thank you for this consult. We will continue to follow. Neyda Sorensen MD ABS/MODL /[id number]
[2019-06-05 06:13] LABS: BASOPHILS % 0.6 % (0.0-1.0); EOSINOPHILS # (AUTO) 0.2 (0.0-0.4); EOSINOPHILS % 3.7 % (0.0-6.0); HEMATOCRIT 34.5 % (38.2-49.6); HEMOGLOBIN 11.2 g/dL (14.0-18.0); LYMPHOCYTES # (AUTO) 1.1 (1.0-3.2); LYMPHOCYTES % 20.3 % (18.0-39.1); MEAN CORPUSCULAR HEMOGLOBIN 30.3 pg (28-32); MEAN CORPUSCULAR HGB CONC 32.5 g/dL (31-35); MEAN CORPUSCULAR VOLUME 93.2 fL (81-99); MONOCYTES # (AUTO) 0.7 (0.2-0.8); MONOCYTES % 12.6 % (4.4-11.3); NEUTROPHILS # (AUTO) 3.4 (2.1-6.9); NEUTROPHILS % 62.1 % (38.7-80.0); PLATELET COUNT 180 x10e3/uL (140-360); RED CELL DISTRIBUTION WIDTH 13.9 % (11.7-14.4)
[2019-06-05 06:44] LABS: ALBUMIN 3.2 g/dL (3.5-5.0); ALBUMIN/GLOBULIN RATIO 0.9 (0.8-2.0); ANION GAP 15.4 mmol/L (8-16); CALCIUM 9.2 mg/dL (8.4-10.2); CHOL/HDL RATIO 6.2 (3.9-4.7); CREATININE, SERUM 2.95 mg/dL (0.72-1.25); MAGNESIUM 2.5 MG/DL (1.3-2.1); PHOSPHORUS 4.6 MG/DL (2.3-4.7); POTASSIUM 4.4 mmol/L (3.5-5.1)
--- NOTE | 2019-06-05 07:05 | NUR ---
Received patient with eyes open, respiration even and unlabored without SOB. Call light in reach.
[2019-06-05] MEDS: SODIUM BICARBONATE 650 MG TAB PO SCH (08:08)
[2019-06-05] MEDS: FAMOTIDINE 20 MG/2 ML VIAL IV SCH (08:57)
[2019-06-05] MEDS ORDERED: CLOPIDOGREL BISULFATE 75 MG TAB PO SCH (09:00)
[2019-06-05] MEDS ORDERED: RANOLAZINE 500 MG TABSR PO SCH (09:00)
[2019-06-05] MEDS ORDERED: FUROSEMIDE 40 MG TAB PO SCH (09:00)
[2019-06-05] MEDS ORDERED: PANTOPRAZOLE SOD 40 MG TABEC PO SCH (09:00)
[2019-06-05] MEDS ORDERED: METOPROLOL SUCCINATE 50 MG TAB XL PO SCH (09:00)
[2019-06-05] MEDS ORDERED: PANTOPRAZOLE 40 MG 10ML VIAL IV SCH (09:00)
[2019-06-05] MEDS ORDERED: ASPIRIN 81 MG CHEW TAB PO SCH (09:00)
[2019-06-05] MEDS ORDERED: FERROUS SULFATE 325 MG TAB PO SCH (09:00)
[2019-06-05] MEDS ORDERED: ESCITALOPRAM OXALATE 10 MG TAB PO SCH (09:00)
--- NOTE | 2019-06-05 13:18 | NUR ---
Patient is to be discharge to home today, 18g PIV to left AC discontinued, catheter tip intact, no bleeding noted. transported via wheelchair to private vehicle.
[2019-06-05] MEDS ORDERED: FAMOTIDINE 20 MG TAB PO SCH (21:00)
[2019-06-05] MEDS ORDERED: ATORVASTATIN 40 MG TAB PO SCH (21:00)
[2019-06-06] MEDS ORDERED: METOPROLOL TARTRATE 25 MG TAB PO SCH (06:00)
--- NOTE | 2019-06-06 11:50 | Discharge Summary ---
CONSULTANTS: 1. Dr. Obi Springer. 2. Dr. Elisa Love. FINAL DIAGNOSES: Dizziness, hypotensive, and generalized weakness secondary to allergic reaction, most likely in combination of Bactrim DS and the patient has taken Benicar at home. SUMMARY: The patient is a 74-year-old male came in with worsening renal failure. BUN and creatinine went up. The patient was having dizziness, dehydration. His BUN was 68, creatinine was 3.85, and potassium was 5.5. The patient has taken Bactrim DS along with Benicar. Those 2 medications have been discontinued. The patient is doing much better now. BUN and creatinine most likely baseline 55 and 2.9. Potassium is 4.4. The patient is stable, discharged home. Resume home medications except for that 2 medications. The patient is instructed to follow up with Dr. Elisa Love and Dr. Obi Springer as an outpatient. Please review the consultation report. MD SUE Anders/MATHIEU /[id number]
== END 2019-06-05 13:17 | disposition home or self-care (01) ==
LOC: ER 09:15 → ERHOLD 09:48 → INTOOBSV 09:48 → MED/SURG 17:10
PROVIDERS: ADMIT Internal Medicine; ATTEND Internal Medicine
DX: I95.89 Other hypotension (principal); T36.8X5A Adverse effect of other systemic antibiotics, initial encounter; T46.5X5A Adverse effect of other antihypertensive drugs, initial encounter; I25.10 Atherosclerotic heart disease of native coronary artery without angina pectoris; Z95.1 Presence of aortocoronary bypass graft; I13.0 Hypertensive heart and chronic kidney disease with heart failure and stage 1 through stage 4 chronic kidney disease, or unspecified chronic kidney disease; I50.22 Chronic systolic (congestive) heart failure; N18.9 Chronic kidney disease, unspecified; Z95.0 Presence of cardiac pacemaker; R00.1 Bradycardia, unspecified; I77.9 Disorder of arteries and arterioles, unspecified; N17.9 Acute kidney failure, unspecified; E87.2 Acidosis; E87.5 Hyperkalemia
CPT/HCPCS: 36415; 71045; 76770; 80053 ×2; 80061; 81001; 82550 ×2; 82553 ×2; 82570; 83605; 83690; 83735 ×2; 83880; 84100; 84156; 84484 ×2; 85025 ×2; 85610; 85730; 87040; 93005; 93306; 96376; 99284; C9113; G0378 ×2; J7040; S0164; 96372; 96374